=== PATIENT | female | born 1995 | race African-American/Black ===

== ENCOUNTER 2016-12-03 19:48 | Emergency (ER) | payer OTHER ==
[2016-12-03 20:00] VITALS: BP 113/78; PULSE 106; TEMP 99.4; BMI 27.4
--- NOTE | 2016-12-03 20:03 | PDOC ---
History of Present Illness - General History Source: Patient Exam Limitations: No Limitations - History of Present Illness Initial Comments: 12/03/16 20:16 The patient is a 21 year old female, with no significant past medical history who presents to the emergency department with left nostril runny nose, headache fever (yesterday), facial sinus pressure, and sore throat. The patient reports having gradually worsening sinus pain, nasal congestion, and headache. She denies recent chills or dizziness. She denies recent nausea, vomit, diarrhea or constipation. She denies recent chest pain or shortness of breath. PAST MEDICAL HISTORY: See HPI PAST SURGICAL HISTORY: No significant history. FAMILY HISTORY: No pertinent history. SOCIAL HISTORY: Patient lives with family and is employed. MEDICATIONS: Reviewed. ALLERGIES: As per nursing notes. ROS General: +fevers No chills, no weakness, no weight loss HEENT: +sinus pain. No change in vision. + sore throat. No ear pain CardioVascular: No chest pain or shortness of breath Respiratory:No cough, or wheezing. Gastrointestinal: No nausea, vomiting, diarrhea or constipation. No rectal bleeding Genitourinary: No dysuria, hematuria, or frequency Musculoskeletal: No joint or muscle pain or swelling Neurologic: +headache No vertigo, dizziness or loss of consciousness Psychiatric: No depression Skin: No rashes or easy bruising Endocrine: no increased thirst or abnormal weight change Allergic: no skin or latex allergy All other systems reviewed and normal Exam: General: Well-nourished well-developed individual, no acute distress HEENT: Tenderness and percussion over the maxillary sinuses. Throat: Mild erythema posterior pharynx. No exudate Neck: Supple, Mild bilateral submandibular lymphadenopathy Eyes: Pupils equal reactive and round, extraocular motion intact Chest: Nontender to palpation Cardiac: S1-S2 normal, regular rate and rhythm, no murmurs rubs or gallops Respiratory: Lungs clear to auscultation bilateral Extremities: Warm, dry, no cyanosis, clubbing, or edema Skin: No rashes Neuro: Alert and oriented x3, nonfocal exam, grossly intact, normal gait Psych: Normal mood and affect <Joseph Zuñiga - Last Filed: 12/03/16 20:16> - General History Source: Patient Exam Limitations: No Limitations - History of Present Illness Initial Comments: 12/03/16 20:41 A portion of this note was documented by scribe services under my direction. I have reviewed the details of the note, within reason, and agree with the documentation. The case summary and management plan written by me. Assessment and plan: This is a 21-year-old female who comes in complaining of symptoms of sinus pain, fevers and some congestion. Patient has symptoms of a acute maxillary sinusitis with some mild erythema over posterior oropharynx. Patient started on azithromycin and told to take a decongestant and discharged home. Patient has a primary care doctor she can follow-up with. <Abelino Maravilla I - Last Filed: 12/03/16 20:42> - General Chief Complaint: Pain Stated Complaint: "SINUS PAIN" Time Seen by Provider: 12/03/16 20:02 Past History <Joseph Zuñiga - Last Filed: 12/03/16 20:16> - Psycho/Social/Smoking Cessation Hx Anxiety: No Suicidal Ideation: No Smoking History: Unknown if ever smoked Have you smoked in the past 12 months: No Number of Cigarettes Smoked Daily: 0 If you are a former smoker, when did you quit?: 3 years ago Information on smoking cessation initiated: No Hx Alcohol Use: No Drug/Substance Use Hx: No Substance Use Type: None <Abelino Maravilla I - Last Filed: 12/03/16 20:42> - Past Medical History Allergies/Adverse Reactions: Allergies Allergy/AdvReac Type Severity Reaction Status Date / Time No Known Allergies Allergy Verified 04/11/16 14:06 Home Medications: Ambulatory Orders Azithromycin 250 mg PO DAILY #4 tablet 12/03/16 *Physical Exam - Vital Signs Last Vital Signs Temp Pulse Resp BP Pulse Ox 99.4 F 106 H 14 113/78 98 12/03/16 19:52 12/03/16 19:52 12/03/16 19:52 12/03/16 19:52 12/03/16 19:52 <Joseph Zuñiga - Last Filed: 12/03/16 20:16> - Vital Signs Last Vital Signs Temp Pulse Resp BP Pulse Ox 99.4 F 106 H 14 113/78 98 12/03/16 19:52 12/03/16 19:52 12/03/16 19:52 12/03/16 19:52 12/03/16 19:52 <Abelino Maravilla I - Last Filed: 12/03/16 20:42> *DC/Admit/Observation/Transfer - Attestations Scribe Attestion: . 12/03/16 20:16 Documentation prepared by Joseph Zuñiga, acting as vp medical for Abelino Maravilla MD <Joseph Zuñiga - Last Filed: 12/03/16 20:16> - Discharge Dispostion Admit: No <Abelino Maravilla I - Last Filed: 12/03/16 20:42> Diagnosis at time of Disposition: Acute maxillary sinusitis - Discharge Dispostion Disposition: HOME Condition at time of disposition: Good - Prescriptions Prescriptions: Azithromycin 250 mg PO DAILY #4 tablet - Patient Instructions Printed Discharge Instructions: Sinusitis (Alternative Therapy), Sinusitis Additional Instructions: Tylenol or Motrin as needed for pain. Purchase an [id number]-[id number] decongestant and take as directed on the box. Take azithromycin 1 tablet a day for the next 4 days you're given the first dose tonight in the ER take the next dose tomorrow evening. Return to the emergency department immediately with ANY new, persistent or worsening symptoms. Continue any medications as previously prescribed by your physician. You should follow up with your primary doctor as soon as possible regarding today's emergency department visit. . Please make sure your doctor reviews the results of your emergency evaluation. Thank you for coming to the Emergency Department today for your care. It was a pleasure to see you today. Please note that your evaluation is INCOMPLETE until you follow-up with your doctor.
[2016-12-03] MEDS ORDERED: AZITHROMYCIN 250 MG TABLET (FP) PO ONE (20:12)
[2016-12-03] MEDS ORDERED: AZITHROMYCIN 250 MG TABLET (FP) ONE (20:18)
== END 2016-12-03 20:19 | disposition home or self-care (01) ==
LOC: FER 19:48
DX: J01.00 Acute maxillary sinusitis, unspecified (principal); Z87.891 Personal history of nicotine dependence
CPT/HCPCS: 99281-25

== ENCOUNTER 2018-05-04 23:26 | Emergency (ER) | payer SELFPAY ==
[2018-05-04 23:31] VITALS: BP 133/94; PULSE 92; TEMP 98.3; BMI 29.9
[2018-05-04] MEDS ORDERED: AZITHROMYCIN 500 MG TABLET PO ONE (23:34)
[2018-05-04] MEDS ORDERED: AZITHROMYCIN 250 MG TABLET ONE (23:37)
--- NOTE | 2018-05-04 23:40 | PDOC ---
History of Present Illness - General Chief Complaint: Respiratory Stated Complaint: BRONCHITIS Time Seen by Provider: 05/04/18 23:28 - History of Present Illness Initial Comments: 05/04/18 23:40 The patient is a 22 year old female, with no significant past medical history, who presents to the ED complaining of cold like symptoms for the past 4 days. She reports that she has been having a cough that has been persistent. She also reports a runny nose during this time frame. She notes that she did feel Warm over the weekend but did not take her temperature. She states that she has had bronchitis in the past. The patient denies chest pain/SOB and dizziness. Denies fever, chills, nausea, diarrhea or constipation. Denies dysuria, frequency, urgency and hematuria. Allergies: None Past surgical history: None reported Social History: No alcohol, tobacco or drug use reported Past History - Past Medical History Allergies/Adverse Reactions: Allergies Allergy/AdvReac Type Severity Reaction Status Date / Time No Known Allergies Allergy Verified 05/04/18 23:27 Home Medications: Ambulatory Orders NK [No Known Home Medication] 05/04/18 COPD: No Other medical history: DENIES - Suicide/Smoking/Psychosocial Hx Smoking History: Never smoked Have you smoked in the past 12 months: No Number of Cigarettes Smoked Daily: 0 If you are a former smoker, when did you quit?: 3 years ago Information on smoking cessation initiated: Yes Hx Alcohol Use: Yes (OCCAS.) Drug/Substance Use Hx: No Substance Use Type: None Review of Systems - Review of Systems Comments:: 05/04/18 23:40 "GENERAL/CONSTITUTIONAL: No fever or chills. No weakness. HEAD, EYES, EARS, NOSE AND THROAT: No change in vision. No ear pain or discharge. No sore throat. CARDIOVASCULAR: No chest pain, no shortness of breath, no loss of consciousness RESPIRATORY: (+) Cough. No wheezing, or hemoptysis. GASTROINTESTINAL: No nausea, vomitng, diarrhea or constipation. GENITOURINARY: No dysuria, frequency, or change in urination. MUSCULOSKELETAL: No joint or muscle swelling or pain. No neck or back pain. SKIN: No rash NEUROLOGIC: No Headache. No vertigo, no change in strength/sensation. ENDOCRINE: No increased thirst. No abnormal weight change. HEMATOLOGIC/LYMPHATIC: No anemia, easy bleeding, or history of blood clots. ALLERGIC/IMMUNOLOGIC: No hives or skin allergy. *Physical Exam - Vital Signs Last Vital Signs Temp Pulse Resp BP Pulse Ox 98.3 F 92 H 16 133/94 100 05/04/18 23:28 1818 23:28 [id number] 23:28 12 23:28 05/04/18 23:28 - Physical Exam Comments: 05/04/18 23:38 "GENERAL: Awake, alert, and fully oriented, in no acute distress. HEAD: No signs of trauma EYES: PERRLA, EOMI, sclera anicteric, conjunctiva clear ENT: Auricles normal inspection, hearing grossly normal, nares patent, oropharynx clear without exudates. Moist mucosa NECK: Nontender, no stepoffs, Normal ROM, supple, no lymphadenopathy, JVD, or masses LUNGS: Breath sounds equal, clear to auscultation bilaterally. No wheezes, and no crackles HEART: Regular rate and rhythm, normal S1 and S2, no murmurs, rubs or gallops ABDOMEN: Soft, nontender, normoactive bowel sounds. No guarding, no rebound. No masses EXTREMITIES: Normal range of motion, no edema. No clubbing or cyanosis. No cords, erythema, or tenderness NEUROLOGICAL: Cranial nerves II through XII intact. 5/5 strength and sensation in all extremities, Normal speech, normal gait, normal cerebellar function SKIN: Warm, Dry, normal turgor, no rashes or lesions noted. Moderate Sedation - Procedure Monitoring Vital Signs: Procedure Monitoring Vital Signs Temperature 98.3 F 05/04/18 23:28 Pulse Rate 92 H 05/04/18 23:28 Respiratory Rate 16 05/04/18 23:28 Blood Pressure 133/94 05/04/18 23:28 O2 Sat by Pulse Oximetry (%) 100 05/04/18 23:28 Medical Decision Making - Medical Decision Making 05/04/18 23:35 22 F with cough x 4 days. Pt with no fevers. No CP/SOB. Vitals stable in ED. Suspect viral URI. Lungs with no rales or rhonchi or wheezing. However, given duration of symptoms, will tx empirically for atypical pneumonia. - Z-pack - F/u PMD Pt is well appearing, with normal vitals. Clinically stable for DC at this time. I discussed the physical exam findings, ancillary test results and final diagnoses with the patient. I answered all of the patient's questions. The patient was satisfied with the care received and felt comfortable with the discharge plan and treatment plan. The patient agrees to follow up with the primary care physician within 24-72 hours. *DC/Admit/Observation/Transfer Diagnosis at time of Disposition: Cough - Discharge Dispostion Disposition: HOME Condition at time of disposition: Stable - Referrals - Patient Instructions Printed Discharge Instructions: DI for Cough -- Adult Additional Instructions: Your cough is likely due to a viral infection. However, given the duration of your symptoms, we are starting you on antibiotics to treat a potential bacterial infection. Take the azithromycin once daily for 4 more days. If you experience worsening symptoms, fevers, chest pain, shortness of breath, or any other concerning symptoms ,return to the ER immediately. Otherwise, follow up with your primary doctor within 1 week. - Post Discharge Activity - Attestations Physician Attestion: 05/04/18 23:41 I, Dr. Ty De Leon MD, attest that this document has been prepared under my direction and personally reviewed by me in its entirety. I further attest, that it accurately reflects all work, treatment, procedures and medical decision -making performed by me.
--- NOTE | 2018-05-05 11:41 | PDOC ---
Patient Follow-up (Call Back) - Post ED Follow - Up Condition at time of discharge: Stable Disposition at time of original discharge: HOME - Disposition Additional Instructions/Notes: Z-Bubba was ordered but was not sent to the pharmacy. Medication order was sent to [facility].
== END 2018-05-04 23:51 | disposition home or self-care (01) ==
LOC: FER 23:26
DX: R05 Cough (principal)
CPT/HCPCS: 99281-25